=== PATIENT | male | born 1945 | race Caucasian/White ===

== ENCOUNTER 2017-02-28 13:02 | Emergency (ER) | payer MEDICARE, OTHER ==
[2017-02-28 13:15] VITALS: BP 175/77
[2017-02-28] MEDS ORDERED: Proparacaine 0.5% Ophth Soln 15 ML Bottle EYELF STA (13:35)
--- NOTE | 2017-02-28 13:59 | EDM.PDOC ---
ED HPI GENERAL MEDICAL PROBLEM - General Chief Complaint: Neurological Problem Stated Complaint: [facility] Time Seen by Provider: 02/28/17 13:20 Source of Information: Reports: Patient, RN Notes Reviewed History Limitations: Reports: No Limitations - History of Present Illness INITIAL COMMENTS - FREE TEXT/NARRATIVE: The patient states that he has been experiencing left eye pressure and a left temporal headache that have been waxing and waning for the past 2 weeks. His left eyelid has been drooping, waxing and waning with the left eye pressure and temporal headache symptoms. He states that was [facility] earlier today and cried (for an unrelated reason). He noticed that the eye and headache pain significantly decreased when he did so. He also reports some word finding difficulty for the past 6 weeks, but none presently, and that his feet have been spasming for the past 2 nights. The patient's PCP is at the [facility]. Left Head Pain Score (Numeric/FACES): 2 - Related Data Allergies Allergy/AdvReac Type Severity Reaction Status Date / Time lisinopril Allergy Difficulty Verified 02/28/17 13:35 Swallowing omeprazole Allergy Airway Verified 02/28/17 13:35 Tightness simvastatin [From Zocor] Allergy Itching Verified 02/28/17 13:35 Home Meds: Home Meds Aspirin [Low Dose Aspirin EC] 81 mg PO DAILY 02/28/17 [History] Metoprolol Tartrate 25 mg PO DAILY 02/28/17 [History] Pantoprazole Sodium 20 mg PO BID 02/28/17 [History] Ranitidine HCl [Ranitidine] 150 mg PO DAILY 02/28/17 [History] Sildenafil Citrate [Sildenafil] 50 mg PO DAILY PRN 02/28/17 [History] Tobramycin [Tobrex] 1 - 2 drop EYELF Q4H #1 bottle 02/28/17 [Rx] atorvaSTATin Calcium [Atorvastatin Calcium] 20 mg PO DAILY 02/28/17 [History] Past Medical History Cardiovascular History: Reports: CAD, High Cholesterol, Hypertension Respiratory History: Reports: Sleep Apnea (CPAP 3), Other (See Below) ( Pulmonary fibrosis) Gastrointestinal History: Reports: Colon Polyp, GERD, Hiatal Hernia Endocrine/Metabolic History: Reports: Obesity/BMI 30+ - Past Surgical History Cardiovascular Surgical History: Reports: Coronary Artery Stent (x 1) GI Surgical History: Reports: Hernia, Inguinal (left), Other (See Below) ( Hemorrhoidectomy) Musculoskeletal Surgical History: Reports: Carpal Tunnel (right), Other (See Below) (Left knee, open. Right knee, arthroscopic.) Social & Family History - Tobacco Use Smoking Status *Q: Current Every Day Smoker Years of Tobacco use: 56 Packs/Tins Daily: 0.5 Packs/Tins Daily Comment: Down from 1 ppd - Caffeine Use Caffeine Use: Reports: Coffee - Alcohol Use Alcohol Use History: No - Recreational Drug Use Recreational Drug Use: No - Living Situation & Occupation Living situation: Reports: , with Spouse Occupation: Retired ED ROS GENERAL - Review of Systems Review Of Systems: See Below Constitutional: Reports: No Symptoms HEENT: Reports: Eye Pain (as per the HPI) Respiratory: Reports: No Symptoms Cardiovascular: Reports: No Symptoms Endocrine: Reports: No Symptoms GI/Abdominal: Reports: No Symptoms : Reports: No Symptoms Musculoskeletal: Reports: No Symptoms Skin: Reports: No Symptoms Neurological: Reports: Headache (as per the HPI) Psychiatric: Reports: No Symptoms Hematologic/Lymphatic: Reports: No Symptoms Immunologic: Reports: No Symptoms ED EXAM, GENERAL - Physical Exam Exam: See Below Exam Limited By: No Limitations General Appearance: Alert, WD/WN, No Apparent Distress Eye Exam: Left Eye: Conjunctival Injection, Other (Mild swelling about left eye , without erythema), Bilateral Eye: EOMI, PERRL Ears: Normal External Exam, Normal Canal, Hearing Grossly Normal, Normal TMs Ear Exam: Bilateral Ear: Auricle Normal, Canal Normal, TM normal Nose: Normal Inspection, Normal Mucosa, No Blood Throat/Mouth: Normal Inspection, Normal Lips, Normal Teeth, Normal Gums, Normal Oropharynx, Normal Voice, No Airway Compromise Head: Atraumatic, Normocephalic Neck: Normal Inspection, Supple, Non-Tender, Full Range of Motion. No: Lymphadenopathy (L), Lymphadenopathy (R) Neurological: Alert, Oriented, CN II-XII Intact, Normal Cognition, No Motor/ Sensory Deficits Psychiatric: Normal Affect Skin Exam: Warm, Dry, Intact, Normal Color, No Rash Lymphatic: No Adenopathy Course - Vital Signs Last Recorded V/S: Last Vital Signs Temp 36.3 C 02/28/17 13:08 Pulse 59 L 02/28/17 13:08 Resp 18 02/28/17 13:08 BP 175/77 H 02/28/17 13:08 Pulse Ox 98 02/28/17 13:08 - Orders/Labs/Meds Orders: Active Orders 24 hr Category Date Time Status Maxillofacial with CM [Max Facial Sinus w Cont] [CT] Exams 02/28/17 13:55 Taken Stat Labs: Laboratory Tests 02/28/17 02/28/17 02/28/17 Range/Units 14:04 14:04 14:04 WBC 7.81 (4.23-9.07) K/mm3 RBC 5.29 (4.63-6.08) M/mm3 Hgb 15.8 (13.7-17.5) gm/L Hct 46.0 (40.1-51.0) % MCV 87.0 (79.0-92.2) fl MCH 29.9 (25.7-32.2) pg MCHC 34.3 (32.2-35.5) g/dl RDW Std Deviation 41.7 (35.1-43.9) fL Plt Count 172 (163-337) K/mm3 MPV 9.0 L (9.4-12.3) fl Neutrophils % (Manual) 54 (40-60) % Band Neutrophils % 0 (0-10) % Lymphocytes % (Manual) 28 (20-40) % Atypical Lymphs % 7 % Monocytes % (Manual) 6 (2-10) % Eosinophils % (Manual) 2 (0.8-7.0) % Basophils % (Manual) 3 H (0.2-1.2) Platelet Estimate Adequate Plt Morphology Comment Normal RBC Morph Comment Normal ESR 6 (0-15) mm/hr Sodium 143 (136-145) mEq/L Potassium 4.1 (3.5-5.1) mEq/L Chloride 107 (98-107) mEq/L Carbon Dioxide 27 (21-32) mEq/L Anion Gap 13.1 (5-15) BUN 15 (7-18) mg/dL Creatinine 1.2 (0.7-1.3) mg/dL Est Cr Clr Drug Dosing 63.77 mL/min Estimated GFR (MDRD) > 60 (>60) mL/min BUN/Creatinine Ratio 12.5 L (14-18) Glucose 88 (80-115) mg/dL Calcium 8.9 (8.5-10.1) mg/dL Total Bilirubin 0.9 (0.2-1.0) mg/dL AST 15 (15-37) U/L ALT 30 (16-63) U/L Alkaline Phosphatase 93 (46-116) U/L C-Reactive Protein 0.4 (<1.0) mg/dL Total Protein 6.9 (6.4-8.2) g/dl Albumin 3.6 (3.4-5.0) g/dl Globulin 3.3 gm/dL Albumin/Globulin Ratio 1.1 (1-2) Meds: Medications Discontinued Medications Generic Name Dose Route Start Last Admin Trade Name Freq PRN Reason Stop Dose Admin Sodium Chloride 1,000 mls @ 150 mls/hr 02/28/17 14:00 02/28/17 14:12 Normal Saline IV 150 mls/hr ASDIRECTED IGNACIA Administration Iopamidol 50 ml 02/28/17 14:40 02/28/17 14:47 Isovue-300 (61%) IVPUSH 02/28/17 14:41 50 ml ONETIME ONE Administration Proparacaine HCl 1 ml 02/28/17 13:35 02/28/17 13:42 Proparacaine 0.5% Ophth Soln EYELF 02/28/17 13:36 2 drop ONETIME STA Administration Sodium Chloride 10 ml 02/28/17 14:40 02/28/17 14:47 Saline Flush FLUSH 10 ml ONETIME PRN Administration IV FLUSH - Radiology Interpretation Free Text/Narrative:: CT maxillofacial with IV contrast is read by [facility] as "No evidence of periorbital or orbital cellulitis. Minimal mucosal thickening along the left maxillary sinus floor." - Re-Assessments/Exams Free Text/Narrative Re-Assessment/Exam: 02/28/17 13:57 The differential diagnosis includes preseptal cellulitis, temporal arteritis, conjunctivitis, and acute glaucoma. 02/28/17 16:30 Acute glaucoma appears to be ruled out, with normal intraocular pressures. The patient does not have an elevated WBC count, and the CT scan of his maxillofacial and sinus areas is negative, significantly reducing the likelihood of preseptal cellulitis. His ESR and CRP are within normal limits, substantially reducing the likelihood of giant cell arteritis. The etiology of the patient's symptoms is unclear, but for today's purposes, I will treat him for conjunctivitis with ophthalmic tobramycin. Departure - Departure Time of Disposition: 16:38 Disposition: Home, Self-Care 01 Condition: Fair Clinical Impression: Conjunctivitis, left eye - Discharge Information Prescriptions: Tobramycin [Tobrex] 1 - 2 drop EYELF Q4H #1 bottle Instructions: Bacterial Conjunctivitis Referrals: PCP,None [Primary Care Provider] - Forms: ED Department Discharge Additional Instructions: You were seen in the emergency room for left eye swelling and pressure, left eyelid drooping, along with a left temporal headache. Workup in the ER included blood work and a CT scan of your face and sinuses. Your entire workup was unremarkable. You do not have acute glaucoma. You do not have preseptal cellulitis. You do not have temporal arteritis. Your symptoms are MOST LIKELY due to conjunctivitis, also known as pink eye. Instill 1-2 drops of the antibiotic eye drop Tobrex into your left eye every 4 hours, and continue until your symptoms have resolved, which may take several days. If your symptoms fail to improve by 03/05/2017, please follow-up with your PCP at the [facility]. If your symptoms worsen, please do not hesitate to return to the ER for reevaluation. - My Orders Last 24 Hours: My Active Orders 02/28/17 13:55 Maxillofacial with CM [Max Facial Sinus w Cont] [CT] Stat - Assessment/Plan Last 24 Hours: My Active Orders 02/28/17 13:55 Maxillofacial with CM [Max Facial Sinus w Cont] [CT] Stat
[2017-02-28] MEDS ORDERED: Sodium Chloride 0.9% 1,000 ML IV SCH (14:00)
[2017-02-28] MEDS ORDERED: Sodium Chloride 0.9% 10 ML Syringe FLUSH PRN (14:40)
[2017-02-28] MEDS ORDERED: Iopamidol 612 MG/ML 50 ML SDV IVPUSH ONE (14:40)
--- NOTE | 2017-03-01 07:16 | CT ---
Maxillofacial CT Technique: Multiple axial sections were obtained through the facial structures. Intravenous contrast was utilized. Findings: Minimal mucosal thickening is seen within the left maxillary sinus inferiorly. Other sinuses are clear. No air-fluid levels are seen. Right and left globes are symmetric. No soft tissue abscess is seen. Retrobulbar soft tissues are normal. Extraocular muscles and optic nerves are symmetric. Parotid salivary glands are unremarkable. Bony structures are intact with no fracture being seen. Several calcifications seen within the peritonsillar soft tissues which are felt to be incidental. Impression: 1. Incidental findings. Nothing acute is seen on CT study of the facial structures. Diagnostic code #2 Agree with preliminary report issued by [facility] ([facility] preliminary report dictated on 02/28/17, 4:37 PM Central Time)
== END 2017-02-28 17:01 | disposition home or self-care (01) ==
LOC: JD.ED 13:02
DX: H10.9 Unspecified conjunctivitis (principal); I10 Essential (primary) hypertension; I25.10 Atherosclerotic heart disease of native coronary artery without angina pectoris; E78.00 Pure hypercholesterolemia, unspecified; G47.30 Sleep apnea, unspecified; K21.9 Gastro-esophageal reflux disease without esophagitis; E66.9 Obesity, unspecified; F17.210 Nicotine dependence, cigarettes, uncomplicated; Z95.5 Presence of coronary angioplasty implant and graft; Z98.890 Other specified postprocedural states; Z79.82 Long term (current) use of aspirin; Z79.899 Other long term (current) drug therapy; Z88.8 Allergy status to other drugs, medicaments and biological substances
CPT/HCPCS: 36415; 70487; 80053; 85025; 85652; 86140; 96360; 96361; 99284; J7040; J7050; Q9967; 99283

== ENCOUNTER 2017-12-05 13:15 | Emergency (ER) | payer MEDICARE, OTHER ==
[2017-12-05] MEDS ORDERED: Sodium Chloride 0.9% 10 ML Syringe FLUSH PRN (13:54)
[2017-12-05] MEDS ORDERED: Aspirin 81 MG Tab.Chew PO ONE (13:54)
--- NOTE | 2017-12-05 14:25 | CT ---
Head CT Technique: Multiple axial sections through the brain were obtained. Intravenous contrast was not utilized. Comparison: No previous intracranial imaging Findings: Parenchymal hemorrhage identified within the posterior right parietal region. Hemorrhage measures around 3.5 cm in size and shows surrounding low-density edema. No other areas of intracranial hemorrhage are seen. No midline shift is seen. Ventricles along with basal cisterns and sulci over the convexities are within normal limits. Atherosclerotic calcification is noted within the carotid siphon. No acute calvarial abnormality is seen. Impression: 1. 3.5 cm posterior right parietal hemorrhage. Surrounding low-density edema is seen. Difficult to exclude hemorrhagic neoplasm. MRI study with contrast recommended to further evaluate. 2. No other acute finding is seen. Diagnostic code #5
[2017-12-05] MEDS ORDERED: Labetalol 100 MG/20 ML MDV IVPUSH ONE ×3 (14:43→16:43)
[2017-12-05] MEDS ORDERED: HYDROmorphone 0.5 MG/0.5 ML SYRINGE IVPUSH ONE (14:43)
--- NOTE | 2017-12-05 14:43 | EDM.PDOC ---
ED HPI GENERAL MEDICAL PROBLEM - General Chief Complaint: Neurological Problem Stated Complaint: BODY PAIN/VOMITING Time Seen by Provider: 12/05/17 13:34 Source of Information: Reports: Patient, Family, Provider History Limitations: Reports: No Limitations - History of Present Illness INITIAL COMMENTS - FREE TEXT/NARRATIVE: The patient was sent from [facility] for headache, bodyaches, nausea, vomiting , and chest pain. This has been going on for about 3 days. The patient says this all started back in January. He has had headaches and trouble with his vision. He has had ptosis on his left eye and double vision. He has been worked up for myasthenia gravis and seen opthamology and neurology. He last saw Dr Edmonds a neurologist at [place]. He had a MRI and MRA of his brain. There was nothing abnormal seen. He has also been confused lately. He thought he saw a car going into the ditch recently while driving. He also will switch topics mid sentence. He had the chest pain for about 3 days. He has shortness of breath with it. He has no abdominal pain but he did vomit. He has no numbness or weakness. Onset: Gradual Duration: Day(s): (3) Location: Reports: Head, Chest Quality: Reports: Sharp Severity: Severe Improves with: Reports: None Worsens with: Reports: None Associated Symptoms: Reports: Chest Pain, Headaches, Nausea/Vomiting. Denies: Confusion, Diaphoresis, Fever/Chills, Shortness of Breath Headache Pain Score (Numeric/FACES): 10 - Related Data Allergies Allergy/AdvReac Type Severity Reaction Status Date / Time lisinopril Allergy Difficulty Verified 12/05/17 13:34 Swallowing omeprazole Allergy Airway Verified 12/05/17 13:34 Tightness simvastatin [From Zocor] Allergy Itching Verified 12/05/17 13:34 Home Meds: Home Meds Aspirin [Low Dose Aspirin EC] 81 mg PO DAILY 02/28/17 [History] Metoprolol Tartrate 12.5 mg PO BID 02/28/17 [History] Pantoprazole Sodium 40 mg PO BID 02/28/17 [History] Ranitidine HCl [Ranitidine] 150 mg PO BEDTIME 02/28/17 [History] atorvaSTATin Calcium [Atorvastatin Calcium] 20 mg PO DAILY 02/28/17 [History] Cholecalciferol (Vitamin D3) [Vitamin D3] 1,000 units PO DAILY 12/05/17 [History ] Topiramate 25 mg PO BEDTIME 12/05/17 [History] Past Medical History Cardiovascular History: Reports: CAD, High Cholesterol, Hypertension Respiratory History: Reports: Sleep Apnea (CPAP 3), Other (See Below) ( Pulmonary fibrosis) Gastrointestinal History: Reports: Colon Polyp, GERD, Hiatal Hernia Endocrine/Metabolic History: Reports: Obesity/BMI 30+ - Past Surgical History Cardiovascular Surgical History: Reports: Coronary Artery Stent (x 1) GI Surgical History: Reports: Hernia, Inguinal (left), Other (See Below) ( Hemorrhoidectomy) Musculoskeletal Surgical History: Reports: Carpal Tunnel (right), Other (See Below) (Left knee, open. Right knee, arthroscopic.) Social & Family History - Tobacco Use Smoking Status *Q: Former Smoker Years of Tobacco use: 56 Packs/Tins Daily: 0.5 Used Tobacco, but Quit: Yes Month/Year Tobacco Last Used: 2 months ago - Caffeine Use Caffeine Use: Reports: Coffee - Recreational Drug Use Recreational Drug Use: No - Living Situation & Occupation Living situation: Reports: , with Spouse Occupation: Retired ED ROS GENERAL - Review of Systems Review Of Systems: See Below Constitutional: Reports: No Symptoms HEENT: Reports: No Symptoms Respiratory: Reports: No Symptoms Cardiovascular: Reports: Chest Pain Endocrine: Reports: No Symptoms GI/Abdominal: Reports: Nausea, Vomiting : Reports: No Symptoms Musculoskeletal: Reports: No Symptoms Skin: Reports: No Symptoms Neurological: Reports: Headache ED EXAM, NEURO - Physical Exam Exam: See Below Exam Limited By: No Limitations General Appearance: Alert, No Apparent Distress Ears: Normal External Exam Nose: Normal Inspection Head Exam: Atraumatic, Normocephalic, Other (Pain upon palpation to both temples ) Neck: Normal Inspection Respiratory/Chest: No Respiratory Distress, Lungs Clear, Normal Breath Sounds Cardiovascular: Normal Peripheral Pulses, Regular Rate, Rhythm, No Edema GI/Abdominal: Soft, Non-Tender, No Organomegaly, No Mass Neurological: Alert, No Motor/Sensory Deficits, Oriented x 3 Back Exam: Normal Inspection Extremities: Normal Inspection EKG INTERPRETATION EKG Date: 12/05/17 Time: 14:33 Rhythm: NSR Rate (Beats/Min): 96 Sod: Normal P-Wave: Present QRS: Normal ST-T: Normal QT: Normal Course - Vital Signs Last Recorded V/S: Last Vital Signs Temp 98 F 12/05/17 13:24 Pulse 95 12/05/17 13:24 Resp 18 12/05/17 13:24 BP 167/83 H 12/05/17 13:24 Pulse Ox 97 12/05/17 13:24 - Orders/Labs/Meds Orders: Active Orders 24 hr Category Date Time Status Cardiac Monitoring [RC] . DIRECTED Care 12/05/17 13:54 Active EKG Documentation Completion [RC] STAT Care 12/05/17 13:55 Active Peripheral IV Care [RC] . DIRECTED Care 12/05/17 13:55 Active Chest 1V Frontal [CR] Stat Exams 12/05/17 13:55 Taken ROGELIO SCREEN RFLX [REF] Stat Lab 12/05/17 14:00 Received C-REACTIVE PROTEIN [CHEM] Stat Lab 12/05/17 14:00 Received CBC WITH AUTO DIFF [HEME] Stat Lab 12/05/17 14:00 Results COMPREHENSIVE METABOLIC PN,CMP [CHEM] Stat Lab 12/05/17 14:00 Received ESR [SEDIMENTATION RATE AUTO] [HEME] Stat Lab 12/05/17 14:00 Received RHEUMATOID FACT.W/RFX TO TITER [CHEM] Stat Lab 12/05/17 14:00 Received TROPONIN I [CHEM] Stat Lab 12/05/17 14:00 Received Sodium Chloride 0.9% [Saline Flush] Med 12/05/17 13:54 Active 10 ml FLUSH ASDIRECTED PRN Peripheral IV Insertion Adult [OM.PC] Stat Oth 12/05/17 13:54 Ordered Medication Orders Sodium Chloride (Saline Flush) 10 ml FLUSH ASDIRECTED PRN PRN Reason: Keep Vein Open Last Admin: 12/05/17 14:26 Dose: 10 ml Labs: Laboratory Tests 12/05/17 Range/Units 14:00 WBC 13.20 H (4.23-9.07) K/mm3 RBC 5.02 (4.63-6.08) M/mm3 Hgb 14.9 (13.7-17.5) gm/L Hct 42.9 (40.1-51.0) % MCV 85.5 (79.0-92.2) fl MCH 29.7 (25.7-32.2) pg MCHC 34.7 (32.2-35.5) g/dl RDW Std Deviation 39.4 (35.1-43.9) fL Plt Count 188 (163-337) K/mm3 MPV 8.8 L (9.4-12.3) fl Neut % (Auto) 90.3 H (34.0-67.9) % Lymph % (Auto) 5.2 L (21.8-53.1) % [place] % (Auto) 4.2 L (5.3-12.2) % Eos % (Auto) 0 L (0.8-7.0) Baso % (Auto) 0.1 (0.1-1.2) % Neut # (Auto) 11.92 H (1.78-5.38) K/mm3 Lymph # (Auto) 0.68 L (1.32-3.57) K/mm3 [place] # (Auto) 0.56 (0.30-0.82) K/mm3 Eos # (Auto) 0.00 L (0.04-0.54) K/mm3 Baso # (Auto) 0.01 (0.01-0.08) K/mm3 Meds: Medications Generic Name Dose Route Start Last Admin Trade Name Freq PRN Reason Stop Dose Admin Sodium Chloride 10 ml 12/05/17 13:54 12/05/17 14:26 Saline Flush FLUSH 10 ml ASDIRECTED PRN Administration Keep Vein Open Discontinued Medications Generic Name Dose Route Start Last Admin Trade Name Freq PRN Reason Stop Dose Admin Aspirin 324 mg 12/05/17 13:54 12/05/17 14:26 Aspirin PO 12/05/17 13:55 Not Given ONETIME ONE - Re-Assessments/Exams Free Text/Narrative Re-Assessment/Exam: 12/05/17 14:52 I ordered an IV saline lock, EKG, labs, CT of his head. His EKG shows a NSR with no acute changes. I was called from CT to look at his scan. He has a 3.5cm posterior right parietal hemorrhage. Surrounding low-density edema is seen. Difficult to exclude hemorrhagic neoplasm. MRI study with contrast recommended to further evaluate. The patient is on aspirin but he did not take it today. I let the patient and his know what is going on. I called [facility] in [place] and talked with Dr Armando and he accepted the patient. The patient' s BP was 159/90. He wanted his systolic less then 140 so I ordered lebatolol 10mg IV. I also orderd some dilaudid for pain. 12/05/17 14:56 He will be going by plane to [place]. Departure - Departure Time of Disposition: 15:00 Disposition: DC/Tfer to [facility] 02 Condition: Serious Clinical Impression: Cerebral parenchymal hemorrhage Qualifiers: Intracerebral hemorrhage etiology: nontraumatic Cerebral hemorrhage location: unspecified cerebral location Laterality: right Qualified Code(s): I61.9 - Nontraumatic intracerebral hemorrhage, unspecified - Discharge Information Referrals: Monica Rice DO [Primary Care Provider] - - My Orders Last 24 Hours: My Active Orders 12/05/17 13:54 Cardiac Monitoring [RC] . DIRECTED Sodium Chloride 0.9% [Saline Flush] 10 ml FLUSH ASDIRECTED PRN Peripheral IV Insertion Adult [OM.PC] Stat 12/05/17 13:55 EKG Documentation Completion [RC] STAT Peripheral IV Care [RC] . DIRECTED Chest 1V Frontal [CR] Stat 12/05/17 14:00 ROGELIO SCREEN RFLX [REF] Stat C-REACTIVE PROTEIN [CHEM] Stat CBC WITH AUTO DIFF [HEME] Stat COMPREHENSIVE METABOLIC PN,CMP [CHEM] Stat ESR [SEDIMENTATION RATE AUTO] [HEME] Stat RHEUMATOID FACT.W/RFX TO TITER [CHEM] Stat TROPONIN I [CHEM] Stat - Assessment/Plan Last 24 Hours: My Active Orders 12/05/17 13:54 Cardiac Monitoring [RC] . DIRECTED Sodium Chloride 0.9% [Saline Flush] 10 ml FLUSH ASDIRECTED PRN Peripheral IV Insertion Adult [OM.PC] Stat 12/05/17 13:55 EKG Documentation Completion [RC] STAT Peripheral IV Care [RC] . DIRECTED Chest 1V Frontal [CR] Stat 12/05/17 14:00 ROGELIO SCREEN RFLX [REF] Stat C-REACTIVE PROTEIN [CHEM] Stat CBC WITH AUTO DIFF [HEME] Stat COMPREHENSIVE METABOLIC PN,CMP [CHEM] Stat ESR [SEDIMENTATION RATE AUTO] [HEME] Stat RHEUMATOID FACT.W/RFX TO TITER [CHEM] Stat TROPONIN I [CHEM] Stat
[2017-12-05] MEDS ORDERED: Ondansetron 4 MG/2 ML SDV IVPUSH ONE (16:59)
[2017-12-05 17:52] VITALS: BP 151/77
--- NOTE | 2017-12-06 07:06 | CR ---
Chest: Portable view of the chest was obtained. Comparison: Prior chest x-ray of 08/21/17. Heart size appears mildly enlarged. Lung markings are mildly increased which appear accentuated from portable technique as well as chronic. No acute parenchymal change is appreciated. Bony structures are grossly intact. Impression: 1. Mild cardiomegaly. Nothing acute is appreciated. Diagnostic code #2
== END 2017-12-05 17:05 ==
LOC: JD.ED 13:15
DX: I61.9 Nontraumatic intracerebral hemorrhage, unspecified (principal); Z88.8 Allergy status to other drugs, medicaments and biological substances; Z79.82 Long term (current) use of aspirin; Z79.899 Other long term (current) drug therapy; Z87.891 Personal history of nicotine dependence
CPT/HCPCS: 36415; 70450; 71045; 80053; 84484; 85025; 85652; 86038; 86140; 86430; 93005; 96374; 96375; 96376; 99285; J1170; J2405; J7050; 83516; 86225; 86235; 93010

== ENCOUNTER 2019-02-27 07:05 | Day surgery (SDC) | payer MEDICARE, OTHER ==
[~2019-02-27 07:05] MED LIST: Lactated Ringers 1,000 ML IV SCH; Lidocaine 1%/Sod Bicarbonate in NS 8.4% 1 ML Syringe IDERM PRN; Sodium Chloride 0.9% 10 ML Syringe FLUSH PRN
--- NOTE | 2019-02-27 07:20 | PCM.PREANE ---
Preanesthetic Assessment - Anesthesia/Transfusion/Family Hx Anesthesia History: Prior Anesthesia Without Reaction Family History of Anesthesia Reaction: No Transfusion History: No Prior Transfusion(s) Intubation History: Unknown - Review of Systems General: No Symptoms Pulmonary: Shortness of Breath, Wheezing, Cough, Sputum, Other Cardiovascular: No Symptoms Gastrointestinal: No Symptoms Neurological: Dizziness Other: Reports: None - Physical Assessment NPO Status Date: 02/26/19 NPO Status Time: 11:55 Height: 1.85 m Weight: 113.398 kg ASA Class: 5E Emergency Mental Status: Other Dentition: Reports: Normal Dentition ROM/Head Extension: Limited/Partial Lungs: Clear to Auscultation, Decreased Breath Sounds, Rales, Wheezing Cardiovascular: Regular Rate, Regular Rhythm, No Murmurs - Allergies Allergies/Adverse Reactions: Allergies Allergy/AdvReac Type Severity Reaction Status Date / Time lisinopril Allergy Difficulty Verified 02/26/19 14:21 Swallowing omeprazole Allergy Airway Verified 02/26/19 14:21 Tightness simvastatin [From Zocor] Allergy Itching Verified 02/26/19 14:21 - Blood Blood Available: No Product(s) Available: None - Anesthesia Plan Beta Paul: Metoprolol - Acknowledgements Anesthesia Type Planned: MAC Pt an Appropriate Candidate for the Planned Anesthesia: Yes Alternatives and Risks of Anesthesia Discussed w Pt/Guardian: Yes Pt/Guardian Understands and Agrees with Anesthesia Plan: Yes Additional Comments: pulmomary fibrosis- asbetos from [facility]- CAD- stents -2007- CVA - November 2017 - intracerebral bleed- PreAnesthesia Questionnaire HEENT History: Reports: Impaired Vision Other HEENT History: wears eyeglasses Cardiovascular History: Reports: CAD, High Cholesterol, Hypertension Respiratory History: Reports: Sleep Apnea, Other (See Below) Other Respiratory History: pulmonary fibrosis, decrased diffusion capacity of lung, idiopathic pulmonary fibrosis, usual interstitial pneumonitis Gastrointestinal History: Reports: Colon Polyp, GERD, Hiatal Hernia, Other (See Below) Other Gastrointestinal History: globus sensation, gallstones, H Pylori, Genitourinary History: Reports: Renal Calculus [employer] History: Reports: None Musculoskeletal History: Reports: Arthritis, Fracture Neurological History: Reports: CVA, Other (See Below) Other Neuro History: intercerebral hemorrhage Psychiatric History: Reports: Other (See Below) Other Psychiatric History: fear of needles Endocrine/Metabolic History: Reports: Obesity/BMI 30+ Hematologic History: Reports: None Immunologic History: Reports: None Oncologic (Cancer) History: Reports: None Other Oncologic History: skin CA Dermatologic History: Reports: None - Infectious Disease History Infectious Disease History: Reports: Chicken Pox - Past Surgical History Head Surgeries/Procedures: Reports: None Cardiovascular Surgical History: Reports: Coronary Artery Stent Respiratory Surgical History: Reports: None GI Surgical History: Reports: Hernia, Inguinal, Other (See Below) Other GI Surgeries/Procedures: hemorrhoidectomy Female Surgical History: Reports: None Male Surgical History: Reports: None Endocrine Surgical History: Reports: None Neurological Surgical History: Reports: None Musculoskeletal Surgical History: Reports: Arthroscopic Knee, Carpal Tunnel, Other (See Below) Oncologic Surgical History: Reports: None Dermatological Surgical History: Reports: None - SUBSTANCE USE Smoking Status *Q: Former Smoker Recreational Drug Use History: No - HOME MEDS Home Medications: Home Meds Metoprolol Tartrate 25 mg PO BID 02/28/17 [History] Pantoprazole Sodium 40 mg PO BID 02/28/17 [History] Ranitidine HCl [Ranitidine] 150 mg PO BEDTIME 02/28/17 [History] atorvaSTATin Calcium [Atorvastatin Calcium] 20 mg PO DAILY 02/28/17 [History] Cholecalciferol (Vitamin D3) [Vitamin D3] 1,000 units PO DAILY 12/05/17 [History ] Acetaminophen [Tylenol] 650 mg PO Q6H PRN 02/26/19 [History] amLODIPine Besylate [Norvasc] 10 mg PO DAILY 02/26/19 [History] - CURRENT (IN HOUSE) MEDS Current Meds: Current Medications Lactated Ringer's (Ringers, Lactated) 1,000 mls @ 125 mls/hr IV ASDIRECTED IGNACIA Stop: 02/27/19 23:00 Lidocaine/Sodium Bicarbonate (Buffered Lidocaine 1% In Ns 8.4%) 0.25 ml IDERM ONETIME PRN PRN Reason: Prior to IV Start Stop: 02/27/19 18:00 Sodium Chloride (Saline Flush) 10 ml FLUSH ASDIRECTED PRN PRN Reason: Keep Vein Open Stop: 02/27/19 18:00
[2019-02-27] MEDS ORDERED: Propofol 200 MG/20 ML SDV ONE ×4 (07:22→09:07)
[2019-02-27] MEDS ORDERED: Midazolam 1 MG/ML 2 ML SDV ONE ×4 (08:15→08:43)
--- NOTE | 2019-02-27 09:39 | PCM.OPNOTE ---
- General Post-Op/Procedure Note Date of Surgery/Procedure: 02/27/19 Operative Procedure(s): colonoscopy to cecum and polypectomy X 5 Pre Op Diagnosis: family hx of colon cancer and persona hx of polyps Post-Op Diagnosis: Same Anesthesia Technique: MAC Primary Surgeon: Wes Holley EBL in mLs: 0 Complications: None Condition: Good
--- NOTE | 2019-02-27 09:42 | PCM.POSTAN ---
POST ANESTHESIA ASSESSMENT - MENTAL STATUS Mental Status: Alert - RESPIRATORY Respiratory Status: Respiratory Rate WNL, Airway Patent, O2 Saturation Stable, Supplemental Oxygen - CARDIOVASCULAR CV Status: Pulse Rate WNL, Blood Pressure Stable - GASTROINTESTINAL GI Status: No Symptoms - POST OP HYDRATION Hydration Status: Adequate & Stable
--- NOTE | 2019-02-27 09:43 | PCM48HPAN ---
Post Anesthesia Note - EVALUATION WITHIN 48HRS OF ANESTHETIC Vital Signs in Normal Range: Yes Patient Participated in Evaluation: Yes Respiratory Function Stable: Yes Airway Patent: Yes Cardiovascular Function Stable: Yes Hydration Status Stable: Yes Pain Control Satisfactory: Yes Nausea and Vomiting Control Satisfactory: Yes Mental Status Recovered: Yes Resp Rate: 16
[2019-02-27 10:11] VITALS: BP 117/78
--- NOTE | 2019-02-28 07:53 | OR ---
DATE OF OPERATION: 02/27/2019 SURGEON: Wes Holley MD PREOPERATIVE DIAGNOSIS: Family history of colon cancer and personal history of polyps. POSTOPERATIVE DIAGNOSIS: Family history of colon cancer and personal history of polyps. OPERATION PERFORMED: Colonoscopy to the cecum with polypectomy x5. ANESTHESIA: Done under IV sedation. FINDINGS: A polyp at 45 cm, which was removed by cautery snare and then site clipped, it was retrieved. The polyp at 45 cm was about a centimeter. There was incomplete removal. This was biopsied a number of times and then a clip was placed on it. There was a polyp at 50 cm. The polyp at far up 40 cm was sessile. There was another sessile polyp at 50 cm. The polyp at 50 cm was sessile and was a subcentimeter polyp. It was completely removed by cautery snare and retrieved. The 3rd polyp was at 20 cm. It was a subcentimeter, sessile. It was removed by cautery snare, but not retrieved. It was completely removed. The 4th polyp was at 15 cm. It was removed by cautery snare and completely. It was sessile, completely removed and retrieved, and a clip placed on the site and then there was a polyp just inside the rectum, which was biopsied only. It was sessile about 1 cm. DESCRIPTION OF PROCEDURE: The patient was taken to the endoscopy room, placed in a supine position, connected to monitoring equipment, given IV sedation, and placed in left lateral position. Perianal area was inspected. Rectal exam showed good sphincter tone. A video Olympus colonoscope was then introduced into the rectum. It was threaded up to the cecum. Loop developed and counter pressure and external pressure in the abdomen allowed the scope to be advanced into the cecum. The area was photographed. Prep was excellent. [place] Cleansing Score grade A, and the scope slowly withdrawn showing the cecum, ascending colon, transverse colon, descending colon, sigmoid colon, and rectum. Retroflexed view was done. Five polyps were removed as described above and sent to pathology. The patient tolerated the procedure and sent to recovery room in stable condition. ESTIMATED BLOOD LOSS: MMODAL /[id number]
== END 2019-02-27 11:15 | disposition home or self-care (01) ==
LOC: JD.SDS 07:05
PROVIDERS: ATTEND Surgery
DX: D12.5 Benign neoplasm of sigmoid colon (principal); K63.5 Polyp of colon; K62.1 Rectal polyp; Z86.010 Personal history of colon polyps; Z80.0 Family history of malignant neoplasm of digestive organs; E78.00 Pure hypercholesterolemia, unspecified; I10 Essential (primary) hypertension; K21.9 Gastro-esophageal reflux disease without esophagitis; M19.90 Unspecified osteoarthritis, unspecified site; G47.33 Obstructive sleep apnea (adult) (pediatric); E66.9 Obesity, unspecified; Z68.33 Body mass index [BMI] 33.0-33.9, adult; Z87.891 Personal history of nicotine dependence; Z87.09 Personal history of other diseases of the respiratory system; Z88.8 Allergy status to other drugs, medicaments and biological substances; Z79.899 Other long term (current) drug therapy; Z86.79 Personal history of other diseases of the circulatory system; Z86.73 Personal history of transient ischemic attack (TIA), and cerebral infarction without residual deficits; Z95.5 Presence of coronary angioplasty implant and graft; Z99.89 Dependence on other enabling machines and devices
CPT/HCPCS: 45385; J2250; J2704; J7120

== ENCOUNTER 2022-12-15 12:12 | Emergency (ER) | payer MEDICARE, OTHER ==
[2022-12-15 12:33] VITALS: BP 177/92; PULSE 53
[2022-12-15] MEDS ORDERED: Acetaminophen 325 MG Tab PO ONE (14:16)
== END 2022-12-15 14:26 | disposition home or self-care (01) ==
LOC: JD.ED 12:12
DX: S00.12XA Contusion of left eyelid and periocular area, initial encounter (principal); S09.90XA Unspecified injury of head, initial encounter; I25.10 Atherosclerotic heart disease of native coronary artery without angina pectoris; I10 Essential (primary) hypertension; K21.9 Gastro-esophageal reflux disease without esophagitis; M19.90 Unspecified osteoarthritis, unspecified site; E78.00 Pure hypercholesterolemia, unspecified; E66.9 Obesity, unspecified; Z88.8 Allergy status to other drugs, medicaments and biological substances; Z79.82 Long term (current) use of aspirin; Z68.31 Body mass index [BMI] 31.0-31.9, adult; Z79.899 Other long term (current) drug therapy; W01.198A Fall on same level from slipping, tripping and stumbling with subsequent striking against other object, initial encounter
CPT/HCPCS: 70450; 70486; 99283; A9270

== ENCOUNTER 2023-07-25 11:54 | Emergency (ER) | payer OTHER ==
[2023-07-25 12:37] LABS: APPEARANCE,URINE CLEAR (Clear); BILIRUBIN,URINE 1+ (Negative); COLOR,URINE DARK YELLOW (Yellow); GLUCOSE,URINE NEGATIVE (Negative); KETONES,URINE 1+ (Negative); LEUKOCYTE ESTERASE,URINE NEGATIVE (Negative); NITRITE,URINE NEGATIVE (Negative); OCCULT BLOOD,URINE NEGATIVE (Negative); PROTEIN,URINE 3+ (Negative)
[2023-07-25 12:59] LABS: BACTERIA,URINE FEW /hpf (FEW); EPITHELIAL CELLS,URINE 0-5 /hpf (0-5); MUCUS,URINE MANY /hpf (FEW); RBC,URINE 0-5 /hpf (0-5); WBC,URINE 0-5 /hpf (0-5)
[2023-07-25] MEDS ORDERED: Ketorolac 30 MG/ML SDV IM ONE (14:41)
[2023-07-25 15:39] VITALS: BP 132/78; PULSE 75
== END 2023-07-25 15:15 | disposition home or self-care (01) ==
LOC: JD.ED 11:54
DX: S80.212A Abrasion, left knee, initial encounter (principal); S60.812A Abrasion of left wrist, initial encounter; R07.81 Pleurodynia; I10 Essential (primary) hypertension; E78.00 Pure hypercholesterolemia, unspecified; E66.9 Obesity, unspecified; M19.90 Unspecified osteoarthritis, unspecified site; Z86.73 Personal history of transient ischemic attack (TIA), and cerebral infarction without residual deficits; Z79.82 Long term (current) use of aspirin; Z79.899 Other long term (current) drug therapy; Z88.8 Allergy status to other drugs, medicaments and biological substances; Z68.30 Body mass index [BMI] 30.0-30.9, adult; W01.198A Fall on same level from slipping, tripping and stumbling with subsequent striking against other object, initial encounter
CPT/HCPCS: 70450; 70450-26; 71101-26-LT; 71101-LT; 81001; 99283; 99284